=== PATIENT | female | born 1950 | race Caucasian/White ===

== ENCOUNTER → 2016-09-20 | Outpatient (CLI) | payer OTHER ==
[~2016-09-20] MED LIST: CALTRATE PLUS1 EACH; CENTRUM SILVER1 EAC1; CIPROFLOXACIN500 M1 PO; ENALAPRIL MALEAT5 M2; FISH OIL 1,001000 M1; FLAGYL500 MG PO; MINIPRIN81 MG; VITAMIN D400 UNI1
== END ==
LOC: RAD 08:44
DX: R07.81 Pleurodynia (principal)